=== PATIENT | female | born 1975 | race Caucasian/White ===

== ENCOUNTER 2021-06-28 19:50 | Emergency (ER) | payer OTHER ==
[2021-06-28 20:02] VITALS: BMI 24.5
[2021-06-28 20:20] VITALS: BP 122/40; PULSE 91; TEMP 99.3
[2021-06-28] MEDS ORDERED: IBUPROFEN 400 MG TABLET (FP) PO ONE ×2 (20:59→21:02)
== END 2021-06-28 22:47 | disposition home or self-care (01) ==
LOC: FER 19:50
DX: M79.602 Pain in left arm (principal)
CPT/HCPCS: 93005; 93971; 99284-25